=== PATIENT | male | born 1975 | race Hispanic/Latino ===

== ENCOUNTER 2018-12-06 13:17 | Emergency (ER) | payer OTHER ==
[2018-12-06] MEDS ORDERED: IBUPROFEN 600 MG TABLET ONE (15:27)
== END 2018-12-06 16:41 | disposition home or self-care (01) ==
LOC: EDH 13:17
DX: S83.8X1A Sprain of other specified parts of right knee, initial encounter (principal); X58.XXXA Exposure to other specified factors, initial encounter; Y93.89 Activity, other specified; Y92.89 Other specified places as the place of occurrence of the external cause; Y99.8 Other external cause status
CPT/HCPCS: 73562; 93971